=== PATIENT | female | born 1950 | race American Indian/Alaskan Native ===

== ENCOUNTER 2016-11-21 08:07 | Day surgery (SDC) | payer MEDICARE ==
[2016-11-21 09:12] LABS: INR 1.19 (0.87-1.13)
[2016-11-21 09:13] LABS: Partial Thromboplastin Time 26.8 Sec. (24.2-36.6)
--- NOTE | 2016-11-21 10:29 | Short Stay Summary ---
Short Stay Documentation Date of service: 11/21/16 - History Principal diagnosis: Pleural effusion Past Medical History: cancer - Allergies and Medications Current Medications: Allergies Penicillins Allergy (Intermediate, Verified 11/21/16 08:27) Swelling codeine Allergy (Verified 11/21/16 08:29) Swelling morphine Allergy (Verified 11/21/16 08:28) Swelling Home Medications Medication Instructions Recorded Confirmed Last Taken Type Carvedilol [Carvedilol] 12.5 mg PO DAILY 11/21/16 11/21/16 11/20/16 History Hydralazine HCl [Apresoline TAB] 50 mg PO DAILY 11/21/16 11/21/16 11/20/16 History Letrozole [Letrozole] 2.5 mg PO DAILY 11/21/16 11/21/16 11/20/16 History Lisinopril [Lisinopril] 10 mg PO DAILY 11/21/16 11/21/16 11/20/16 History Potassium Chloride [Klor-Con M20] 20 meq PO DAILY 11/21/16 11/21/16 11/20/16 History - Physical exam General appearance: no acute distress - Brief post op/procedure progress note Date of procedure: 11/21/16 Pre-op diagnosis: Pleural effusion Post-op diagnosis: same Procedure: Thoracentesis Anesthesia: local Surgeon: SANDRA COWAN Estimated blood loss: none Specimen disposition: to lab Condition: stable - Disposition Condition at discharge: Good Disposition: [id number] TO HOME OR SELFCARE Short Stay Discharge Plan Follow up with: NAE YOUSSEF MD [Primary Care Provider] - 7 Days
--- NOTE | 2016-11-21 10:42 | XRay Report ---
AP expiratory chest x-ray. History: Status post right thoracentesis. Findings: There is no evidence of pneumothorax. The heart is enlarged with normal vascularity. The lungs are clear. There is no pleural fluid. A unipolar pacemaker is in good position. Impression: No acute findings.
--- NOTE | 2016-11-21 11:37 | Ultrasound Report ---
Ultrasound-guided thoracentesis. History: Pleural effusion/breast cancer. Procedure: The patient's skin surface overlying the right posterior thorax was prepped and draped using sterile technique. Local anesthetic was injected in the skin. Using sonographic guidance, a 5 [place] Yueh catheter was inserted into the right pleural space. 420 cc of serous fluid was aspirated appropriate samples sent for laboratory. The patient tolerated the procedure well clinically. A postprocedure expiratory chest x-ray demonstrated no evidence of pneumothorax, and the patient was discharged in satisfactory condition.
[2016-11-21 11:50] VITALS: BP 134/88
== END 2016-11-21 11:48 | disposition home or self-care (01) ==
LOC: CATHLABREC 08:07 → EDSTATUS 09:00 → CATHLABREC 11:48
PROVIDERS: ATTEND Internal Medicine Hematology
DX: J90 Pleural effusion, not elsewhere classified (principal); Z88.5 Allergy status to narcotic agent; Z88.0 Allergy status to penicillin
CPT/HCPCS: 32555; 36415; 85610; 85730; 87116; 88112; 88305; 88341; 88342